=== PATIENT | female | born 2000 | race Caucasian/White ===

== ENCOUNTER 2022-12-18 18:15 | Inpatient (IN) ==
[2022-12-18] MEDS ORDERED: Nalbuphine 10 MG/ML 1 ML VIAL IV PRN (18:29)
[2022-12-18] MEDS ORDERED: Lactated Ringers 1000 ml BAG 1,000 ML IV ONE ×2 (18:29→19:54)
[2022-12-18] MEDS ORDERED: Lidocaine 1% VIAL 10 MG/ML 30 ML VIAL INJ PRN (18:29)
[2022-12-18] MEDS ORDERED: Promethazine INJ(RESTRICTED) 25 MG/ML 1 ml VIAL IV PRN (18:29)
[2022-12-18] MEDS ORDERED: Buffered Lidocaine 1% SYRIN 1 ml INTRADERM ONE (18:29)
[2022-12-18] MEDS ORDERED: OBEPIDURAL (200 ML) 200 ML EPIDURAL ONE (18:46)
[2022-12-18] MEDS ORDERED: Lidocaine 1.5% EPI 1:200,000 30 ML SDV ONE (18:46)
[2022-12-18 18:55] LABS: Hematocrit 34.5 % (35-45); Hemoglobin 11.7 g/dL (11.5-14.3); Mean Corpuscular Hemoglobin 27.6 pg (27-33); Mean Corpuscular Volume 81.1 fL (80-97); Mean Platelet Volume 7.3 fL (7.5-11.2); Platelet Count 281 10^3/uL (150-450); Red Blood Count 4.25 10^6/uL (3.63-4.92); Red Cell Distribution Width 15.5 % (12-17); White Blood Count 21.8 10^3/uL (3.8-11.8)
[2022-12-18] MEDS ORDERED: Lactated Ringers 1000 ml BAG 1,000 ML IV SCH ×2 (19:00→20:00)
[2022-12-18] MEDS ORDERED: Sodium Citrate/Citric Acid LIQ 15 ML UDC PO PRN (19:54)
[2022-12-18] MEDS ORDERED: Phenylephrine 40 mcg/mL 10mL (400mcg) SYRINGE IV PUSH PRN ×2 (19:54)
[2022-12-18] MEDS ORDERED: Lactated Ringers 1000 ml BAG 500 ML IV PRN ×2 (19:54)
[2022-12-18] MEDS ORDERED: OBEPIDURAL (200 ML) 200 ML EPIDURAL SCH (20:00)
[2022-12-18] MEDS ORDERED: Calcium Carb (TUMS) 500 mg CHEW TAB PO ONE (20:33)
[2022-12-18 21:04] LABS: Urine Appearance Cloudy; Urine Bilirubin Negative (Negative); Urine Blood 3+ (Negative); Urine Color Yellow; Urine Glucose Negative (Negative); Urine Ketones 2+ (Negative); Urine Nitrite Negative (Negative); Urine Protein 3+(>=500 mg/dL) (Negative); Urine Specific Gravity 1.023 (1.002-1.030); Urine Urobilinogen Negative (Negative)
[2022-12-18 21:15] LABS: Urine Benzodiazepine Screen None Detected (None Detect); Urine Cannabinoids Screen None Detected (None Detect); Urine Opiates Screen None Detected (None Detect)
[2022-12-18 21:30] LABS: Urine Bacteria Absent (Absent); Urine Red Blood Cell 3+(>10/hpf) (Absent); Urine Squamous Epithelial Cell Present (Absent); Urine White Blood Cell Absent (Absent)
[2022-12-18] MEDS ORDERED: Oxytocin in LR 20,000 MILLI.UNIT/1,000 ML BAG IV SCH (22:30)
[2022-12-19] MEDS ORDERED: Methylergonovine 0.2 mg AMPULE 1 ml AMP ONE (01:53)
[2022-12-19] MEDS ORDERED: Glycerin ADULT 2.4 gm SUPP PR PRN (02:14)
[2022-12-19] MEDS ORDERED: Witch Hazel PAD JAR TOPICAL PRN (02:14)
[2022-12-19] MEDS ORDERED: Dibucaine 1% OINT 28.35 GM TUBE PR PRN (02:14)
[2022-12-19] MEDS: Oxytocin in LR 20,000 MILLI.UNIT/1,000 ML BAG IV SCH ×3 (02:53→12:05)
[2022-12-19] MEDS ORDERED: Lactated Ringers 1000 ml BAG 1,000 ML IV SCH (03:00)
[2022-12-19] MEDS ORDERED: Methylergonovine 0.2 mg AMPULE 1 ml AMP IM ONE (06:30)
[2022-12-19 11:20] LABS: Hepatitis C Antibody Negative (Negative)
[2022-12-20 07:28] LABS: ABS Eosinophils 0.1 10^3/uL (0.0-0.5); ABS Lymphocytes 2.9 10^3/uL (1.0-4.8); ABS Monocytes 1.1 10^3/uL (0.0-0.9); ABS Neutrophils 7.7 10^3/uL (1.5-7.6); ABS Nucleated RBC 0.01 10^3/ul; Eosinophil % 0.7 %; Hemoglobin 7.6 g/dL (11.5-14.3); Lymphocyte % 24.6 %; Mean Corpuscular Hemoglobin 28.4 pg (27-33); Mean Corpuscular Hgb Conc 34.6 g/dL (31-36); Mean Corpuscular Volume 82.3 fL (80-97); Mean Platelet Volume 6.9 fL (7.5-11.2); Nucleated Red Blood Cells % 0.1 /100 WBC (0.0-0.4); Platelet Count 181 10^3/uL (150-450); Red Blood Count 2.68 10^6/uL (3.63-4.92); White Blood Count 11.7 10^3/uL (3.8-11.8)
[2022-12-21 08:18] LABS: Hematocrit 26.2 % (35-45); Hemoglobin 9.2 g/dL (11.5-14.3)
[2022-12-21 08:41] VITALS: BP 114/78
== END 2022-12-21 12:13 | disposition home or self-care (01) | DRG 560 ==
LOC: MCHOBOUT 18:16 → MCHOB 18:17
PROVIDERS: ADMIT Obstetrics & Gynecology; ATTEND Obstetrics & Gynecology